=== PATIENT | male | born 1965 | race Hispanic/Latino ===

== ENCOUNTER 2017-07-03 14:48 | Emergency (ER) | payer OTHER ==
[2017-07-03 15:21] VITALS: BMI 18.2
[2017-07-03 15:25] VITALS: RESP 18
[2017-07-03] MEDS ORDERED: Sodium Chloride 0.9% 1,000 ML IV SCH (15:30)
--- NOTE | 2017-07-03 15:32 | ED PDOC ---
Arrival/HPI - General Chief Complaint: Abnormal Skin Integrity Time Seen by Provider: 07/03/17 15:02 Historian: Patient - History of Present Illness Narrative History of Present Illness (Text): 07/03/17 15:28 51yr old male presents today with left sided neck mass and generalized weakness and fatigue. pt states he developed pain and swelling to the left side of the neck yesterday. pt states he has been feeling fatigued for a few days. denies any medications problems. no dizziness. no cp or sob. no vomiting/diarrhea. c/o pain with swallowing. denies feeling of throat closing. no sick contacts. Recent left sided facial pain. 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 absent: Sore Throat Respiratory: absent: SOB, Cough Cardiovascular: absent: Chest Pain, Palpitations Gastrointestinal: absent: Abdominal Pain, Nausea, Vomiting Musculoskeletal: absent: Arthralgias Skin: absent: Rash, Pruritis Neurological: absent: Headache, Dizziness Psychiatric: absent: Anxiety, Depression Physical Exam Vital Signs Reviewed: Yes Vital Signs Temp Pulse Resp BP Pulse Ox 07/03/17 18:56 58 L 18 108/71 100 07/03/17 18:00 53 L 18 99/63 L 100 07/03/17 16:45 97.6 F 58 L 18 107/73 100 07/03/17 14:48 97.7 F 70 18 94/62 L 99 Temperature: Afebrile Blood Pressure: Hypotensive Pulse: Regular Respiratory Rate: Normal Appearance: Positive for: Well-Appearing, Non-Toxic, Comfortable Pain Distress: None Mental Status: Positive for: Alert and Oriented X 3 - Systems Exam Head: Present: Atraumatic Pupils: Present: PERRL Extroacular Muscles: Present: EOMI Conjunctiva: Present: Normal Ears: Present: Normal, NORMAL TM Mouth: Present: Moist Mucous Membranes, Normal Lips, Normal Tounge, Other (no elevation of the floor of the mouth. ). No: Drooling, Trismus, Normal Teeth (+ minimal tenderness over left lower molars; + minimal gingival edema. ) Pharnyx: Present: Normal. No: ERYTHEMA, EXUDATE, TONSILS ENLARGED, Peritonsilar Swelling, Uvular Deviation, Muffled/Hoarse Voice, Soft Palate/ Uvular Edema Nose (External): Present: Atraumatic Nose (Internal): Present: Normal Inspection Neck: Present: Normal Range of Motion, Trachea Midline, Other (+ left sided tender area of swelling/mass noted to left side of neck just inferior to mandible. ) Respiratory/Chest: Present: Clear to Auscultation, Good Air Exchange. No: Respiratory Distress, Accessory Muscle Use Cardiovascular: Present: Regular Rate and Rhythm, Normal S1, S2. No: Murmurs Abdomen: No: Tenderness Neurological: Present: GCS=15, Speech Normal Skin: Present: Warm, Dry, Normal Color. No: Rashes Psychiatric: Present: Alert, Oriented x 3 Medical Decision Making ED Course and Treatment: 07/03/17 16:49 51yr old male with left sided neck pain and mass. cbc; wnl cmp wnl ct soft tissue neck; FINDINGS: The current study reveals mild asymmetry of the submandibular glands left-sided which is somewhat larger than the right nonspecific however no parenchymal masses collections or calcifications. No evidence to suggest on parenchymal edema. The parotid glands are grossly unremarkable without masses collections or abnormal calcifications. . Some vague infiltration changes seen in the subcutaneous fat anteriorly. There may be a small amount of either fluid or possibly edema within the anterior inferior margin of the neck (just above thoracic inlet. Adjacent to the left sternocleidomastoid muscle extending just across midline. Rule out infection/ cellulitis In addition, there is abnormality what is felt to represent the hyoid bone. Rule out sequela of old trauma. There is asymmetry of the left sternocleidomastoid muscle which is larger than the right nonspecific. Rule out muscle spasm. . No evidence to suggest a intra muscular hematoma or mass. . There are some vague infiltration changes in the anterior subcutaneous fat bilaterally more so on the left arm changes are nonspecific. There are multiple small nonspecific bilateral cervical lymph nodes none of which appear pathologically enlarged. Largest right the jugulodigastric lymph node measures approximately 11 mm and largest left jugulodigastric lymph node measures approximately 15 mm. Few small submandibular lymph nodes are present. The thyroid gland exhibits normal size and attenuation pattern without evidence of abnormal attenuation. Cervical arterial vasculature is unremarkable. The common carotid arteries, carotid bifurcations and internal carotid artery is widely patent without significant atherosclerotic disease or stenosis. Jugular veins are patent as well. Vallecula is asymmetric likely due to some encroachment of lingual tonsils as well as some residual and or retained secretion. Free margin of the epiglottis unremarkable. The pyriform sinuses are minimally asymmetric which could be due to some residual and or retained secretion as well. Aryepiglottic folds are grossly unremarkable. Vocal cords appear relatively symmetric. Mild degenerative spondylosis most notably affecting C5-C6 to a lesser degree C6-C7 and less of the C4-C5 levels. Minor biapical parenchymal scarring changes. No evidence of apical pneumothorax. IMPRESSION: Some vague infiltration changes seen in the subcutaneous fat anteriorly. There may be a small amount of either fluid or possibly edema within the anterior inferior margin of the neck (just above thoracic inlet. Adjacent to the left sternocleidomastoid muscle extending just across midline. Rule out infection/ cellulitis. In addition, there is abnormality what is felt to represent the hyoid bone. Rule out sequela of old trauma. There is asymmetry of the submandibular glands left-sided which appears slightly larger than the right however no parenchymal masses collections or calcifications. No evidence of edema. There is asymmetry of the sternocleidomastoid musculature left-sided which is larger in overall caliber/diameter than the right-side nonspecific . No evidence to suggest a intramuscular hematoma or mass. Clinical correlation with physical exam recommended to exclude muscle spasm. If indicated, follow-up MRI may be prudent. 07/03/17 19:02 pt reassessment; pt feeling better; resting comfortably; wants to go home. Pt seen and evaluated by Dr. Tripp; Discussed all findings and depth with the patient. Advised patient to follow up with a dentist and primary care physician within the next 2 days. Advised immediately return if symptoms worsen or persist or if new concerning symptoms develop: High fevers, increasing pain, increasing swelling, redness, or if any other concerning symptoms develop. will treat the patient for dental infection as he had toothache and swelling of gingiva 2 days ago. augmentin po motrin po impression; lymphadenopathy, dental infection motrin every 6 hours as needed for pain augmentin;1 tablet twice daily x 7 days. increase fluids follow up with the dentist within the next 2 days follow up with the primary care physician within the next 2 days. Return if symptoms worsen or persist or if new concerning symptoms develop: High fevers, increasing pain, increasing swelling, redness, or if any other concerning symptoms develop. - Lab Interpretations Lab Results: 07/03/17 15:40 07/03/17 15:40 Lab Results 07/03/17 15:40: WBC 9.8, RBC 4.53, Hgb 12.7 L, Hct 37.3 L, MCV 82.3, MCH 28.0, MCHC 34.0, RDW 14.7 H, Plt Count 231, MPV 9.2, Gran % 57.4, Lymph % (Auto) 28.7 , [place] % (Auto) 7.1 H, Eos % (Auto) 6.3 H, Baso % (Auto) 0.5, Gran # 5.60, Lymph # 2.8, [place] # 0.7 H, Eos # 0.6, Baso # 0.05 07/03/17 15:40: Sodium 139, Potassium 3.8, Chloride 100, Carbon Dioxide 30, Anion Gap 13, BUN 16, Creatinine 0.9, Est GFR ( Amer) > 60, Est GFR (Non- Af Amer) > 60, Random Glucose 83, Calcium 9.3, Total Bilirubin 0.4, AST 22, ALT 31, Alkaline Phosphatase 52, Total Protein 7.0, Albumin 4.1, Globulin 2.8, Albumin/Globulin Ratio 1.5 - RAD Interpretation Radiology Orders: 07/03/17 15:22 NECK SOFT TISSUE W/CONTRAST [CT] Stat - Medication Orders Current Medication Orders: Sodium Chloride (Sodium Chloride 0.9%) 1,000 mls @ 100 mls/hr IV .Q10H LAURY Last Admin: 07/03/17 15:41 Dose: 100 mls/hr eMAR Start Stop Document 07/03/17 15:41 EQ (Rec: 07/03/17 15:41 EQ [id number]) Intravenous Solution Start Date 07/03/17 Start Time 15:41 Discontinued Medications Amoxicillin/Clavulanate Potassium (Augmentin 875 Mg-125 Mg Tab) 1 tab PO STAT STA PRN Reason: Protocol Stop: 07/03/17 19:03 Last Admin: 07/03/17 19:11 Dose: 1 tab Ibuprofen (Motrin Tab) 600 mg PO STAT STA Stop: 07/03/17 19:03 Last Admin: 07/03/17 19:10 Dose: 600 mg MAR Pain/Vitals Document 07/03/17 19:10 AB (Rec: 07/03/17 19:11 AB [id number]) Pain Reassessment Is This A Pain ReAssessment? Yes Sleep Is patient sleeping during reassessment? Yes Presence of Pain Presence of Pain No Pain Scale Used Pain Scale Used Numeric Disposition/Present on Arrival - Present on Arrival Any Indicators Present on Arrival: No History of DVT/PE: No History of Uncontrolled Diabetes: No Urinary Catheter: No History of Decub. Ulcer: No History Surgical Site Infection Following: None - Disposition Have Diagnosis and Disposition been Completed?: Yes Diagnosis: Lymphadenopathy, Dental infection Disposition: HOME/ ROUTINE Disposition Time: 19:10 Patient Plan: Discharge Patient Problems: Current Active Problems Problem Status Onset Dental infection Acute Lymphadenopathy Acute Condition: GOOD Discharge Instructions (ExitCare): Lymphadenopathy (ED) Additional Instructions: motrin every 6 hours as needed for pain augmentin;1 tablet twice daily x 7 days. increase fluids follow up with the dentist/ENT specialist within the next 2 days follow up with the primary care physician within the next 2 days. Return if symptoms worsen or persist or if new concerning symptoms develop: High fevers, increasing pain, increasing swelling, redness, or if any other concerning symptoms develop. [facility] [address] [facility] [phone] [address] [place], [place] [phone] Prescriptions: Amoxicillin/Clavulanate [Augmentin 875 MG-125 MG] 1 tab PO BID #14 tab Ibuprofen [Motrin Tab] 400 mg PO Q6H PRN #20 tab PRN Reason: Pain, Mild (1-3) Referrals: Leslye Cabrera MD [Staff Provider] - Follow up with primary Alfredo Crouch DMD [Non-Staff] - Follow up with primary Waqas Nunn DMD [Staff Provider] - Follow up with primary Hermelindo Beckford DO [Doctor Osteopathy] - Follow up with primary Forms: [employer] ([employer]), WORK NOTE
[2017-07-03 15:48] LABS: BASO # 0.05 K/mm3 (0.0-2.0); BASO % 0.5 % (0.0-3.0); EOS # 0.6 (0.0-0.7); EOS % 6.3 % (1.5-5.0); GRAN # 5.6 (1.4-6.5); GRAN % 57.4 % (50.0-68.0); HEMATOCRIT 37.3 % (42.0-52.0); LYMPH # 2.8 (1.2-3.4); LYMPH % 28.7 % (22.0-35.0); MEAN CELL VOLUME 82.3 fl (80.0-105.0); MEAN PLATELET VOLUME 9.2 fl (7.0-11.0); MONO # 0.7 (0.1-0.6); MONO % 7.1 % (1.0-6.0); RED CELL DISTRIBUTION WIDTH 14.7 % (11.5-14.5); WHITE BLOOD COUNT 9.8 10^3/ul (4.5-11.0)
[2017-07-03 15:56] LABS: ALB/GLOB RATIO 1.5 (1.1-1.8); ALKALINE PHOSPHATASE 52 U/L (38-126); ALT/SGPT 31 U/L (7-56); AST/SGOT 22 U/L (17-59); BILIRUBIN,TOTAL 0.4 mg/dL (0.2-1.3); BLOOD UREA NITROGEN 16 mg/dL (7-21); CALCIUM 9.3 mg/dL (8.4-10.5); CARBON DIOXIDE 30 mmol/L (21-33); CHLORIDE 100 mmol/L (98-107); GFR AFRICAN-AMERICAN > 60; GLUCOSE,RANDOM 83 mg/dL (70-110); POTASSIUM 3.8 mmol/L (3.6-5.0); SODIUM 139 mmol/L (132-148)
[2017-07-03] MEDS ORDERED: Iohexol 350 MG/100 ML VIAL ONE (17:19)
[2017-07-03 18:00] VITALS: TEMP 97.6; O2SAT 100
[2017-07-03 18:57] VITALS: BP 108/71; PULSE 58
--- NOTE | 2017-07-03 19:00 | CT ---
PROCEDURE: CT scan of the neck dated the 07/03/2017. HISTORY: Left-sided neck mass. COMPARISON: No prior study available for comparison. TECHNIQUE: contiguous helical/ transaxial sections of the neck with intravenous contrast. Coronal and sagittal reformats generated. Intravenous contrast dose: 100 cc Omnipaque 350 Radiation dose: DLP 365.17 mGy-cm This CT exam was performed using one or more of the following dose reduction techniques: Automated exposure control, adjustment of the mA and/or kV according to patient size, and/or use of iterative reconstruction technique. FINDINGS: The current study reveals mild asymmetry of the submandibular glands left-sided which is somewhat larger than the right nonspecific however no parenchymal masses collections or calcifications. No evidence to suggest on parenchymal edema. The parotid glands are grossly unremarkable without masses collections or abnormal calcifications. . Some vague infiltration changes seen in the subcutaneous fat anteriorly. There may be a small amount of either fluid or possibly edema within the anterior inferior margin of the neck (just above thoracic inlet. Adjacent to the left sternocleidomastoid muscle extending just across midline. Rule out infection/cellulitis In addition, there is abnormality what is felt to represent the hyoid bone. Rule out sequela of old trauma. There is asymmetry of the left sternocleidomastoid muscle which is larger than the right nonspecific. Rule out muscle spasm. . No evidence to suggest a intra muscular hematoma or mass. . There are some vague infiltration changes in the anterior subcutaneous fat bilaterally more so on the left arm changes are nonspecific. There are multiple small nonspecific bilateral cervical lymph nodes none of which appear pathologically enlarged. Largest right the jugulodigastric lymph node measures approximately 11 mm and largest left jugulodigastric lymph node measures approximately 15 mm. Few small submandibular lymph nodes are present. The thyroid gland exhibits normal size and attenuation pattern without evidence of abnormal attenuation. Cervical arterial vasculature is unremarkable. The common carotid arteries, carotid bifurcations and internal carotid artery is widely patent without significant atherosclerotic disease or stenosis. Jugular veins are patent as well. Vallecula is asymmetric likely due to some encroachment of lingual tonsils as well as some residual and or retained secretion. Free margin of the epiglottis unremarkable. The pyriform sinuses are minimally asymmetric which could be due to some residual and or retained secretion as well. Aryepiglottic folds are grossly unremarkable. Vocal cords appear relatively symmetric. Mild degenerative spondylosis most notably affecting C5-C6 to a lesser degree C6-C7 and less of the C4-C5 levels. Minor biapical parenchymal scarring changes. No evidence of apical pneumothorax. IMPRESSION: Some vague infiltration changes seen in the subcutaneous fat anteriorly. There may be a small amount of either fluid or possibly edema within the anterior inferior margin of the neck (just above thoracic inlet. Adjacent to the left sternocleidomastoid muscle extending just across midline. Rule out infection/cellulitis. In addition, there is abnormality what is felt to represent the hyoid bone. Rule out sequela of old trauma. There is asymmetry of the submandibular glands left-sided which appears slightly larger than the right however no parenchymal masses collections or calcifications. No evidence of edema. There is asymmetry of the sternocleidomastoid musculature left-sided which is larger in overall caliber/diameter than the right-side nonspecific . No evidence to suggest a intramuscular hematoma or mass. Clinical correlation with physical exam recommended to exclude muscle spasm. If indicated, follow-up MRI may be prudent. . These findings were discussed with the at approximately 6:50 p.m. with written down and read back verification.
[2017-07-03] MEDS ORDERED: Amoxicillin-Clav 875-125 mg Tab PO STA (19:02)
== END 2017-07-03 19:21 | disposition home or self-care (01) ==
LOC: ED 14:48
DX: K04.7 Periapical abscess without sinus (principal); R59.1 Generalized enlarged lymph nodes; F17.210 Nicotine dependence, cigarettes, uncomplicated
CPT/HCPCS: 70491; 80053; 85025; 99284; J7040; Q9967

== ENCOUNTER 2017-12-07 15:22 | Emergency (ER) | payer OTHER ==
[2017-12-07 15:22] VITALS: BMI 18.2
[2017-12-07 15:37] VITALS: BP 110/70; PULSE 101; RESP 16; TEMP 98.1; O2SAT 96
--- NOTE | 2017-12-07 15:48 | ED PDOC ---
Arrival/HPI - General Chief Complaint: Cough, Cold, Congestion Time Seen by Provider: 12/07/17 15:45 Historian: Patient - History of Present Illness Narrative History of Present Illness (Text): 12/07/17 15:45 This 52 yo male who denies pmh, presents to this ED c/o cough, nasal congestion , fever, and body ache x 3 days. Patient admits symptoms have been improving. Patient denies hemoptysis, sob, cp, abdominal pain, n/v, dizziness, AGUILAR, or abormal gait. Time/Duration: Other (see hpi) Context: Home Past Medical History - Provider Review Nursing Documentation Reviewed: Yes - Infectious Disease Hx of Infectious Diseases: None - Cardiac Hx Cardiac Disorders: No - Pulmonary Hx Respiratory Disorders: No - Neurological Hx Neurological Disorder: No - HEENT Hx HEENT Disorder: No - Renal Hx Renal Disorder: No - Endocrine/Metabolic Hx Endocrine Disorders: No - Hematological/Oncological Hx Blood Disorders: No - Integumentary Hx Dermatological Disorder: No - Musculoskeletal/Rheumatological Hx Musculoskeletal Disorders: No - Gastrointestinal Hx Gastrointestinal Disorders: No - Genitourinary/Gynecological Hx Genitourinary Disorders: No - Psychiatric Hx Psychophysiologic Disorder: No Hx 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 absent: Fatigue, Weight Change Eyes: Normal ENT: Sore Throat, Rhinorrhea. absent: Hearing Changes, Tinnitus, TMJ Pain, Voice Changes, Epistaxis, Sinus Congestion Respiratory: Cough. absent: SOB, Sputum, Wheezing Cardiovascular: Normal. absent: Chest Pain, Palpitations Gastrointestinal: Normal. absent: Abdominal Pain, Nausea, Vomiting Genitourinary Male: Normal. absent: Dysuria, Frequency, Hematuria Musculoskeletal: Myalgias Skin: Normal. absent: Rash Neurological: Normal. absent: Headache, Dizziness, Focal Weakness, Gait Changes , Speech Changes, Facial Droop, Disequilibrium, Seizure Endocrine: Normal Hemo/Lymphatic: Normal Psychiatric: Normal Physical Exam Vital Signs Temp Pulse Resp BP Pulse Ox 12/07/17 15:24 98.1 F 101 H 16 110/70 96 Temperature: Afebrile Blood Pressure: Normal Pulse: Regular Respiratory Rate: Normal Appearance: Positive for: Well-Appearing, Non-Toxic, Comfortable Pain Distress: None Mental Status: Positive for: Alert and Oriented X 3 - Systems Exam Head: Present: Atraumatic, Normocephalic Pupils: Present: PERRL Extroacular Muscles: Present: EOMI Conjunctiva: Present: Normal Mouth: Present: Moist Mucous Membranes Neck: Present: Normal Range of Motion Respiratory/Chest: Present: Clear to Auscultation, Good Air Exchange. No: Respiratory Distress, Accessory Muscle Use, Wheezes, Rales, Retracting, Rhonchi Cardiovascular: Present: Regular Rate and Rhythm, Normal S1, S2. No: Murmurs Abdomen: Present: Normal Bowel Sounds. No: Tenderness, Distention, Peritoneal Signs, Rebound, Guarding Back: Present: Normal Inspection Upper Extremity: Present: Normal Inspection, Normal ROM. No: Cyanosis, Edema Lower Extremity: Present: Normal Inspection, Normal ROM. No: Edema Neurological: Present: GCS=15, CN II-XII Intact, Speech Normal, Motor Func Grossly Intact, Normal Sensory Function, Normal Cerebellar Funct, Gait Normal Skin: Present: Warm, Dry, Normal Color. No: Rashes Psychiatric: Present: Alert, Oriented x 3, Normal Insight, Normal Concentration Medical Decision Making ED Course and Treatment: 12/07/17 15:49 Patient stated symptoms has been improving. Patient does not want to take Tamiflu. I agreed since symptoms have been affecting him for over 3 days. I recommended Z-pack, and Cough medication. Lungs CTA b/l. No rhonchi, or rales. No abd. tenderness. Re-evaluation Time: 15:50 Reassessment Condition: Re-examined, Improved Disposition/Present on Arrival - Present on Arrival Any Indicators Present on Arrival: No History of DVT/PE: No History of Uncontrolled Diabetes: No Urinary Catheter: No History of Decub. Ulcer: No History Surgical Site Infection Following: None - Disposition Have Diagnosis and Disposition been Completed?: Yes Diagnosis: Bronchitis Disposition: HOME/ ROUTINE Disposition Time: 15:50 Patient Plan: Discharge Condition: GOOD Discharge Instructions (ExitCare): Acute Bronchitis Additional Instructions: Call private doctor for follow upo visit in 1-2 days. Take medication as instructed with food. Do not drive or operate machinery for at least 12 hours if you take cough medication. Drink plenty of fluids, rest, and eat healthy meals. return to emergency if symptoms worsen. Prescriptions: Azithromycin [Z-Augustus] 250 mg PO DAILY #6 tab Promethazine/Codeine [Codeine/Promethazine 10 MG/5 Ml-6.25 MG/5 Ml] 5 ml PO Q4H PRN #120 ml PRN Reason: Cough Referrals: Shonda Shannon DO [Primary Care Provider] - Follow up with primary Forms: [employer] ([employer]), WORK NOTE
== END 2017-12-07 16:00 | disposition home or self-care (01) ==
LOC: ED 15:22
DX: J20.9 Acute bronchitis, unspecified (principal); F17.210 Nicotine dependence, cigarettes, uncomplicated

== ENCOUNTER 2018-06-25 17:33 | Emergency (ER) | payer OTHER ==
[2018-06-25 17:33] VITALS: BMI 18.2
== END 2018-06-25 19:25 | disposition left against medical advice (07) ==
LOC: ED 17:33
DX: Z02.89 Encounter for other administrative examinations (principal); R05 Cough